=== PATIENT | female | born 1930 | race Caucasian/White ===

== ENCOUNTER 2016-07-12 13:40 | Emergency (ER) | payer MEDICARE ==
[2016-07-12 15:30] LABS: Hematocrit 42 % (35-47); Mean Corpuscular HGB Conc 33 g/dl (31-36); Mean Corpuscular Hemoglobin 29 pg (27-31); Mean Corpuscular Volume 86 fL (80-97); Mean Platelet Volume 10 um3 (7.4-10.4); Red Cell Distribution Width 14 % (10.5-15); White Blood Count 6.9 10^3/ul (3.5-10.8)
--- NOTE | 2016-07-12 15:45 | RAD ---
HISTORY: Palpitation COMPARISONS: May 08, 2010 VIEWS:1: Single frontal portable view of the chest at 3:15 PM FINDINGS: LINES AND TUBES: None. CARDIOMEDIASTINAL SILHOUETTE: The aorta is tortuous. The cardiomediastinal silhouette is otherwise normal for portable technique. PLEURA: The costophrenic angles are sharp. No pleural abnormalities are noted. LUNG PARENCHYMA: The lungs are clear. ABDOMEN: The upper abdomen is clear. There is no subphrenic gas. BONES AND SOFT TISSUES: No bone or soft tissue abnormalities are noted. IMPRESSION: NO ACTIVE CARDIOPULMONARY DISEASE.
[2016-07-12 15:50] LABS: Albumin 4.3 g/dL (3.2-5.2); BUN/Creatinine Ratio 16.3 (8-20); Calcium 10.2 mg/dL (8.6-10.3); EGFR African American 69.5 (>60); EGFR Non-African American 54.1 (>60); Globulin 3.2 g/dL (2-4); Magnesium 2.1 mg/dL (1.9-2.7); Total Bilirubin 0.7 mg/dL (0.2-1.0); Total Protein 7.5 g/dL (6.4-8.9)
[2016-07-12 16:39] LABS: TSH (Thyroid Stimulating Horm) 2.36 mcIU/mL (0.34-5.60)
[2016-07-12 17:41] VITALS: BP 143/72
--- NOTE | 2016-07-12 17:51 | ED ---
Ravindra Cobb Anna, scribed for Wilfrid Terrell MD on 07/12/16 at 1507 . Palpitations / Dysrhythmia - HPI Summary HPI Summary: Patient is an 86 y/o female coming to [facility] presenting with onset of intermittent heart palpitations that began two days ago. Her heart feels like it vibrates, and the sensation lasts one second. She feels somewhat diaphoretic , which she attributes to being scared. She denies pain, SOB, nausea, leg edema. Her history is significant for tachycardia. - History of Current Complaint Chief Complaint: EDDysrhythmPalp Time Seen by Provider: 07/12/16 15:00 Hx Obtained From: Patient - Allergy/Home Medications Allergies/Adverse Reactions: Allergies Allergy/AdvReac Type Severity Reaction Status Date / Time No Known Allergies Allergy Verified 07/12/16 14:59 Home Medications: Home Medications Ascorbic Acid TAB* [Vitamin C TAB*] 1,000 mg PO DAILY 07/12/16 [History Confirmed 07/12/16] Calcium W/ Magnesium [Farzad-Mag] 1 tab PO DAILY 07/12/16 [History Confirmed ] Coenzyme Q10 (Ubidecarenone) [Co Q-10] 200 mg PO BID 07/12/16 [History Confirmed 07/12/16] Garlic [Odorless Garlic] 300 mg PO DAILY 07/12/16 [History Confirmed 07/12/16] Pennie (Zingiber Officinalis) [Pennie Root] 250 mg PO DAILY 07/12/16 [History Confirmed 07/12/16] Pjbqwfdjcmf-Vzfciojtnoh-Iur C- [Glucosamine 1500 Complex] 1 cap PO DAILY [History Confirmed 07/12/16] Ibuprofen TAB* [Advil TAB*] 200 mg PO Q6H PRN 07/12/16 [History Confirmed ] LoraTADine TAB(NF) [Claritin 10 MG TAB(NF)] 10 mg PO DAILY 07/12/16 [History Confirmed 07/12/16] Christmas-3 Fatty Acids [Fish Oil 1200 mg] 2 cap PO DAILY 07/12/16 [History Confirmed 07/12/16] Verapamil HCl [Verapamil HCl ER] 180 mg PO DAILY 07/12/16 [History Confirmed ] PMH/Surg Hx/FS Hx/Imm Hx Cardiovascular History: Reports: Hx Hypertension, Other Cardiovascular Problems/ Disorders - Tachycardia Denies: Hx Myocardial Infarction - Surgical History Surgery Procedure, Year, and Place: NUMEROUS SURGERIES. TONSILLECTOMY, TUBAL LIGATION Infectious Disease History: No Infectious Disease History: Denies: Traveled Outside the [place] in Last 30 Days - Family History Known Family History: Negative: Cardiac Disease - Social History Occupation: Retired Alcohol Use: None Substance Use Type: Reports: None Smoking Status (MU): Former Smoker Review of Systems Positive: Skin Diaphoresis Positive: Palpitations Negative: Nausea Negative: Arthralgia, Edema Psychological: Normal All Other Systems Reviewed And Are Negative: Yes Physical Exam Triage Information Reviewed: Yes Vital Signs On Initial Exam: Initial Vitals Temp Pulse Resp BP Pulse Ox 98.4 F 92 16 163/75 100 07/12/16 13:45 07/12/16 13:45 07/12/16 13:45 07/12/16 13:45 07/12/16 13:45 Vital Signs Reviewed: Yes Appearance: Positive: Well-Appearing, No Pain Distress Skin: Positive: Warm, Skin Color Reflects Adequate Perfusion, Dry Head/Face: Positive: Normal Head/Face Inspection Eyes: Positive: Normal ENT: Positive: Normal ENT inspection Neck: Positive: Supple, Nontender Respiratory/Lung Sounds: Positive: Clear to Auscultation, Breath Sounds Present Cardiovascular: Positive: RRR Abdomen Description: Positive: Nontender, Soft Bowel Sounds: Positive: Present Musculoskeletal: Positive: Normal Neurological: Positive: Normal Psychiatric: Positive: Affect/Mood Appropriate - [place] Coma Scale Coma Scale Total: 15 Diagnostics - Vital Signs Vital Signs Temp Pulse Resp BP Pulse Ox 07/12/16 13:45 98.4 F 92 16 163/75 100 - Laboratory Lab Results: Lab Results 07/12/16 07/12/16 07/12/16 Range/Units 15:08 15:08 15:08 WBC 6.9 (3.5-10.8) 10^3/ul RBC 4.90 (4.0-5.4) 10^6/ul Hgb 14.0 (12.0-16.0) g/dl Hct 42 (35-47) % MCV 86 (80-97) fL MCH 29 (27-31) pg MCHC 33 (31-36) g/dl RDW 14 (10.5-15) % Plt Count 212 (150-450) 10^3/ul MPV 10 (7.4-10.4) um3 Neut % (Auto) 73.6 (38-83) % Lymph % (Auto) 18.4 L (25-47) % [place] % (Auto) 6.1 (1-9) % Eos % (Auto) 0.9 (0-6) % Baso % (Auto) 1.0 (0-2) % Absolute Neuts (auto) 5.1 (1.5-7.7) 10^3/ul Absolute Lymphs (auto) 1.3 (1.0-4.8) 10^3/ul Absolute Monos (auto) 0.4 (0-0.8) 10^3/ul Absolute Eos (auto) 0.1 (0-0.6) 10^3/ul Absolute Basos (auto) 0.1 (0-0.2) 10^3/ul Absolute Nucleated RBC 0.01 10^3/ul Nucleated RBC % 0.1 INR (Anticoag Therapy) 0.86 L (0.89-1.11) Sodium 137 (133-145) mmol/L Potassium 4.0 (3.5-5.0) mmol/L Chloride 102 (101-111) mmol/L Carbon Dioxide 26 (22-32) mmol/L Anion Gap 9 (2-11) mmol/L BUN 16 (6-24) mg/dL Creatinine 0.98 H (0.51-0.95) mg/dL Est GFR ( Amer) 69.5 (>60) Est GFR (Non-Af Amer) 54.1 (>60) BUN/Creatinine Ratio 16.3 (8-20) Glucose 106 H (70-100) mg/dL Lactic Acid (0.5-2.0) mmol/L Calcium 10.2 (8.6-10.3) mg/dL Magnesium 2.1 (1.9-2.7) mg/dL Total Bilirubin 0.70 (0.2-1.0) mg/dL AST 20 (13-39) U/L ALT 20 (7-52) U/L Alkaline Phosphatase 92 (34-104) U/L Troponin I 0.00 (<0.04) ng/mL Total Protein 7.5 (6.4-8.9) g/dL Albumin 4.3 (3.2-5.2) g/dL Globulin 3.2 (2-4) g/dL Albumin/Globulin Ratio 1.3 (1-3) TSH 2.36 (0.34-5.60) mcIU/mL 07/12/16 Range/Units 15:08 WBC (3.5-10.8) 10^3/ul RBC (4.0-5.4) 10^6/ul Hgb (12.0-16.0) g/dl Hct (35-47) % MCV (80-97) fL MCH (27-31) pg MCHC (31-36) g/dl RDW (10.5-15) % Plt Count (150-450) 10^3/ul MPV (7.4-10.4) um3 Neut % (Auto) (38-83) % Lymph % (Auto) (25-47) % [place] % (Auto) (1-9) % Eos % (Auto) (0-6) % Baso % (Auto) (0-2) % Absolute Neuts (auto) (1.5-7.7) 10^3/ul Absolute Lymphs (auto) (1.0-4.8) 10^3/ul Absolute Monos (auto) (0-0.8) 10^3/ul Absolute Eos (auto) (0-0.6) 10^3/ul Absolute Basos (auto) (0-0.2) 10^3/ul Absolute Nucleated RBC 10^3/ul Nucleated RBC % INR (Anticoag Therapy) (0.89-1.11) Sodium (133-145) mmol/L Potassium (3.5-5.0) mmol/L Chloride (101-111) mmol/L Carbon Dioxide (22-32) mmol/L Anion Gap (2-11) mmol/L BUN (6-24) mg/dL Creatinine (0.51-0.95) mg/dL Est GFR ( Amer) (>60) Est GFR (Non-Af Amer) (>60) BUN/Creatinine Ratio (8-20) Glucose (70-100) mg/dL Lactic Acid 1.5 (0.5-2.0) mmol/L Calcium (8.6-10.3) mg/dL Magnesium (1.9-2.7) mg/dL Total Bilirubin (0.2-1.0) mg/dL AST (13-39) U/L ALT (7-52) U/L Alkaline Phosphatase (34-104) U/L Troponin I (<0.04) ng/mL Total Protein (6.4-8.9) g/dL Albumin (3.2-5.2) g/dL Globulin (2-4) g/dL Albumin/Globulin Ratio (1-3) TSH (0.34-5.60) mcIU/mL Result Diagrams: 07/12/16 15:08 07/12/16 15:08 Lab Statement: Any lab studies that have been ordered have been reviewed, and results considered in the medical decision making process. - Radiology CXR Xray Interpretation: No Acute Changes Radiology Interpretation Completed By: Radiologist - EKG 1353 Cardiac Rate: NL - 81 bpm EKG Rhythm: Sinus Rhythm ST Segment: Normal Ectopy: None EKG Interpretation: Long QTc Re-Evaluation - Re-Evaluation First Eval Re-Evaluation Time: 17:01 Comment: Discussed results and plan of care with patient. Patient agrees with plan. Course/Dx - Course Course Of Treatment: Ms. Morales's W/U was negative and we observed her on the monitor with catching any dysrythmias. I reassured her and recommended F/U. - Diagnoses Provider Diagnoses: Palpitations Discharge - Discharge Plan Condition: Stable Disposition: HOME Patient Education Materials: Palpitations (ED) Referrals: Atiya Velasquez MD [Primary Care Provider] - Additional Instructions: Follow up with primary care provider within 48 hours. Return to the emergency department for any new or worsening symptoms. The documentation as recorded by the Ravindra chicas Anna accurately reflects the service I personally performed and the decisions made by me, Wilfrid Terrell MD.
== END 2016-07-12 17:41 | disposition home or self-care (01) ==
LOC: ED 13:40
DX: R00.2 Palpitations (principal); R61 Generalized hyperhidrosis; Z87.891 Personal history of nicotine dependence
CPT/HCPCS: 36415; 71010; 80053; 83605; 83735; 84443; 84484; 85025; 85610; 93005; 99284

== ENCOUNTER 2016-10-10 15:56 | Emergency (ER) | payer MEDICARE ==
[2016-10-10 16:01] VITALS: BP 148/65
[2016-10-10] MEDS ORDERED: Cephalexin CAP* 500 MG PO ONE ×3 (16:26)
--- NOTE | 2016-10-10 16:37 | UC ---
Skin Complaint HPI - HPI Summary HPI Summary: Patient presents with possible bug bite to the antecubital fossa x 2 days. She was gardening and states she must have been stung by something although she did not visualize and insect or a tick. She then developed redness around the area measuring 8X7cm with well demarcated areas. Slightly warm to the touch. Denies fevers, sweats, chills or aches. Able to have active ROM without compromise or pain. Denies numbness or tingling. Positive for osteoarthritis but otherwise healthy. - History of Current Complaint Chief Complaint: UCSkin Time Seen by Provider: 10/10/16 16:06 Stated Complaint: BUG BITE Hx Obtained From: Patient ?: No Onset/Duration: Sudden Onset Skin Exposure Onset/Duration: Days Ago Timing: Constant Onset Severity: Mild Current Severity: Mild Pain Intensity: 0 Pain Scale Used: 0-10 Numeric Location: Discrete - antecubital fossa Character: Redness Aggravating: Nothing Alleviating: Nothing Related History: Possible Reaction to: Insect - Allergy/Home Medications Allergies/Adverse Reactions: Allergies Allergy/AdvReac Type Severity Reaction Status Date / Time No Known Allergies Allergy Verified 07/12/16 14:59 Review of Systems Constitutional: Negative Skin: Other - antecubital fossa erythema - well demarcated borders measuring 8X7 ENT: Negative Respiratory: Negative Cardiovascular: Negative Neurovascular: Negative Musculoskeletal: Negative Neurological: Negative All Other Systems Reviewed And Are Negative: Yes PMH/Surg Hx/FS Hx/Imm Hx - Additional Past Medical History Additional PMH: allergies, osteoarthritis Previously Healthy: Yes Other Respiratory History: allergies - Surgical History Surgical History: Yes Surgery Procedure, Year, and Place: NUMEROUS SURGERIES. TONSILLECTOMY, TUBAL LIGATION - Family History Known Family History: Negative: Cardiac Disease - Social History Occupation: Unemployed, Retired Lives: With Family Alcohol Use: None Substance Use Type: None Smoking Status (MU): Former Smoker Physical Exam Triage Information Reviewed: Yes Appearance: Well-Appearing, Well-Nourished Vital Signs: Initial Vital Signs Temp 98.1 F 10/10/16 15:58 Pulse 89 10/10/16 15:58 Resp 20 10/10/16 15:58 BP 148/65 10/10/16 15:58 Pulse Ox 100 10/10/16 15:58 Vital Signs Reviewed: Yes Eye Exam: Normal Eyes: Positive: Conjunctiva Clear Neck exam: Normal Neck: Positive: No Lymphadenopathy Respiratory Exam: Normal Respiratory: Positive: Chest non-tender, Lungs clear Cardiovascular Exam: Normal Cardiovascular: Positive: RRR Musculoskeletal Exam: Normal Musculoskeletal: Positive: Strength Intact Neurological Exam: Normal Neurological: Positive: Alert Psychological: Positive: Normal Response To Family, Age Appropriate Behavior Skin Exam: Normal Course/Dx - Course Course Of Treatment: antecubital fossa erythema - well demarcated borders measuring 8X7 began 2 days ago. possible insect bite but did not visualize area. Keflex given in UC. One dose to dispense to home. Rx sent for 7 days x 4 times daily Keflex. Return precautions given. Patient made aware of results and plan and is OK with discharge. Medications reviewed with patient. - Differential Diagnoses - Skin Complaint Differential Diagnoses: Abscess, Cellulitis, Other - erisepelas - Diagnoses Provider Diagnoses: cellulitis Discharge - Discharge Plan Condition: Stable Disposition: HOME Prescriptions: Cephalexin CAP* [Keflex CAP*] 500 mg PO QID #28 cap MDD 4 Patient Education Materials: Cellulitis (ED) Referrals: Atiya Velasquez MD [Primary Care Provider] - Additional Instructions: If you develop any worsening pain, redness, warmth or you develop a fever, return to UC immediately. Keflex four times daily for 7 days.
[2016-10-10] MEDS ORDERED: Tetan/Diph/Pertus SYR(Tdap)* 0.5 ML SYR(BOOSTRIX) use SYR IM ONE (16:38)
== END 2016-10-10 16:49 | disposition home or self-care (01) ==
LOC: UCEAST 15:56
DX: L03.119 Cellulitis of unspecified part of limb (principal)
CPT/HCPCS: 90471; 90715; 96372; 99212; A9270-GY; G0463

== ENCOUNTER 2017-07-13 11:14 | Emergency (ER) | payer MEDICARE ==
[2017-07-13 11:29] VITALS: BP 143/75
[2017-07-13] MEDS ORDERED: Albuterol 2.5 MG/3 ML NEB.SOL* (0.083%) INH ONE (12:06)
--- NOTE | 2017-07-13 12:27 | UC ---
Nunu Cobb Nilda, scribed for Melissa Olsen MD on 07/13/17 at 1207 . Respiratory Complaint HPI - HPI Summary HPI Summary: This patient is an 87 year old F presenting to [facility] with a chief complaint of constant productive cough (thick, phlegmy) for the past week. The patient rates the pain 0/10 in severity. Symptoms aggravated by lying down at night and alleviated by nothing. Patient reports wheezing, vomiting secondary to cough, insomnia, and chronic constipation. Patient denies fever, chills, loss of appetite, diarrhea, and abnormal urinary symptoms. Pt states recent sick contacts, noting everyones sick. Pt states shes had PNA shots. Pt has not seen here PCP. No h/o lung dx. No cp Medications include Verapamil. Patients medication reviewed this visit. - History of Current Complaint Chief Complaint: UCGeneralIllness Stated Complaint: COUGH CONGESTION Time Seen by Provider: 07/13/17 11:47 Hx Obtained From: Patient Hx Last Menstrual Period: post menopausal Onset/Duration: Sudden Onset, Lasting Weeks, Still Present Timing: Constant Pain Intensity: 0 Pain Scale Used: 0-10 Numeric Character: Cough: Productive Aggravating Factors: Recumbent Position Alleviating Factors: Nothing Associated Signs And Symptoms: Positive: Wheezing. Negative: Fever, Chills - Allergies/Home Medications Allergies/Adverse Reactions: Allergies Allergy/AdvReac Type Severity Reaction Status Date / Time No Known Allergies Allergy Verified 07/12/16 14:59 PMH/Surg Hx/FS Hx/Imm Hx Previously Healthy: Yes Cardiovascular History: Other Other Cardiovascular History: Tachycardia - Surgical History Surgical History: Yes Surgery Procedure, Year, and Place: NUMEROUS SURGERIES. TONSILLECTOMY, TUBAL LIGATION - Family History Known Family History: Negative: Cardiac Disease - Social History Occupation: Retired Lives: Alone Alcohol Use: None Substance Use Type: None Smoking Status (MU): Former Smoker Review of Systems Constitutional: Negative Respiratory: Cough - productive, green phelm, Other - wheezing Gastrointestinal: Vomiting - secondary to cough, Other - chronic constipation; negative loss of appetite, diarrhea Genitourinary: Other - negative abnormal urinary symptoms Neurological: Other - insomnia All Other Systems Reviewed And Are Negative: Yes Physical Exam Triage Information Reviewed: Yes Appearance: Well-Appearing, No Pain Distress, Well-Nourished Vital Signs: Initial Vital Signs Temp 97.7 F 07/13/17 11:22 Pulse 85 07/13/17 11:22 Resp 16 07/13/17 11:22 BP 143/75 07/13/17 11:22 Pulse Ox 97 07/13/17 11:22 Vital Signs Reviewed: Yes Eye Exam: Normal Eyes: Positive: Conjunctiva Clear ENT Exam: Normal ENT: Positive: Normal ENT inspection, Pharynx normal, TMs normal. Negative: Nasal congestion, Nasal drainage Dental Exam: Normal Neck exam: Normal Neck: Positive: Supple, Nontender, No Lymphadenopathy Respiratory Exam: Normal Respiratory: Positive: Chest non-tender, No respiratory distress, No accessory muscle use, Other: - scattered wheeze no increased WOB speaking full, easy sentences Cardiovascular Exam: Normal Cardiovascular: Positive: RRR, No Murmur Abdominal Exam: Normal Abdomen Description: Positive: Nontender, No Organomegaly, Soft Bowel Sounds: Positive: Present Musculoskeletal Exam: Normal Musculoskeletal: Positive: Strength Intact Neurological Exam: Normal Neurological: Positive: Alert Psychological Exam: Normal Psychological: Positive: Normal Response To Family Skin Exam: Normal UC Diagnostic Evaluation - Laboratory O2 Sat by Pulse Oximetry: 97 - Radiology Radiology Interpretation Completed By: Radiologist - CXR reveals no active cardiopulmonary disease. Dr. Olsen has reviewed this radiology report. Re-Evaluation - Re-Evaluation First Eval Re-Evaluation Time: 12:47 Comment: Reviewed CXR results with pt. Wheezing had improved. Will D/C with cough meds, abx. reviewed with pt return precautions, humidify air, hydrate. secretion precaution. and f/u with PCP next week. Respiratory Course/Dx - Course Course Of Treatment: Blood pressure noted and patient informed to follow up with PCP. Pt with cough x 7 days, worse at night. Pt with post tussive emesis. scattered wheeze on exam, stable VS. will give neb, CXR and reassess - Differential Dx/Diagnosis Provider Diagnoses: bronchitis Discharge - Sign-Out/Discharge Documenting (check all that apply): Discharge - Discharge Plan Condition: Stable Disposition: HOME Prescriptions: Azithromycin TAB* [Zithromax TAB (Z-ROSAURA) 250 mg #6 tabs] 2 tab PO .TODAY, THEN 1 DAILY #1 rosaura Benzonatate CAP* [Tessalon 100 MG CAP*] 100 mg PO TID #15 cap Patient Education Materials: Acute Bronchitis (ED) Referrals: Atiya Velasquez MD [Primary Care Provider] - Additional Instructions: - Stay well hydrated. Drink plenty of non-alcoholic, non-caffinated beverages - humidify the air in the room where you sleep - take antibiotics as prescribed until gone - Okay to take cough medication as prescribed - These infections are spread by secretions - do NOT share eating or drinking utensils - clean items you share with other people such as cell phones, computer mouse, TV remote, computer tablets, etc. once you start to feel better , change your toothbrush and your pillowcase. - contact your doctor to schedule a follow-up appointment next week. - Billing Disposition and Condition Condition: STABLE Disposition: HOME The documentation as recorded by the Nunu chicas Nilda accurately reflects the service I personally performed and the decisions made by me, Melissa Olsen MD.
--- NOTE | 2017-07-13 12:35 | RAD ---
HISTORY: Productive cough, rhonchi of left base COMPARISONS: July 12, 2016 VIEWS: 4: Frontal dual-energy and lateral views of the chest. FINDINGS: CARDIOMEDIASTINAL SILHOUETTE: The cardiomediastinal silhouette is normal. YOLANDA: The yolanda are normal. PLEURA: The costophrenic angles are sharp. 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 LUNG PARENCHYMA: The lungs are clear. ABDOMEN: The upper abdomen is clear. There is no subphrenic gas. BONES AND SOFT TISSUES: No bone or soft tissue abnormalities are noted. OTHER: None. IMPRESSION: NO ACTIVE CARDIOPULMONARY DISEASE.
== END 2017-07-13 12:56 | disposition home or self-care (01) ==
LOC: UCEAST 11:14
DX: J40 Bronchitis, not specified as acute or chronic (principal); R00.0 Tachycardia, unspecified; Z87.891 Personal history of nicotine dependence
CPT/HCPCS: 71046; 99212; G0463

== ENCOUNTER 2019-06-20 12:38 | Emergency (ER) | payer MEDICARE ==
[2019-06-20 12:43] VITALS: BP 150/86
[2019-06-20] MEDS ORDERED: Mineral Oil ENEMA* 1 BOTTLE PR ONE (14:47)
[2019-06-20] MEDS ORDERED: Polyethylene Glycol 3350* 17 GM PACKET PO PRN (14:47)
--- NOTE | 2019-06-20 14:47 | ED ---
GI/ HPI - HPI Summary HPI Summary: 89 year old F with hx chronic constipation arriving via private car to [facility] complains of constipation and intermittent dizziness x1 week. Last normal bowel movement 2 days ago. She states she had to digitally remove stool during this bowel movement. Patient denies any fever, chills, erythema of eyes, sore throat , chest pain, shortness of breath, cough, abdominal pain, nausea/vomiting, dysuria, hematuria, myalgia, edema, rash. Symptoms aggravated by nothing. Symptoms alleviated by nothing. She usually takes laxatives which help her constipation. They have not helped this time. She tried using enema which did not help. Patient hasn't eaten much food lately. She hasn't had any vegetables or fruits. Two days ago she consumed a lot of cheese out at lunch with her friends. She states she normally eats 0.5 pound of cheese in 1 week. Yesterday she ate oyster crackers, cheese, coffee, tea. Today she had coffee and sugar. Home Medications Medication Instructions Recorded Confirmed Type Aspirin 81 mg CHEW TAB* 81 mg PO DAILY 04/30/12 10/10/16 History Calcium W/ Magnesium [Farzad-Mag] 1 tab PO DAILY 07/12/16 10/10/16 History Garlic [Odorless Garlic] 300 mg PO DAILY 07/12/16 10/10/16 History Pennie (Zingiber Officinalis) 250 mg PO DAILY 07/12/16 10/10/16 History [Pennie Root] Glucosamine/Chondroitin/C/Bob 1 cap PO DAILY 07/12/16 10/10/16 History [Glucosamine 1500 Complex] Ibuprofen TAB* [Advil TAB*] 200 mg PO Q6H PRN 07/12/16 10/10/16 History LoraTADine TAB(NF) [Claritin 10 MG 10 mg PO DAILY 07/12/16 10/10/16 History TAB(NF)] Porcupine-3 Fatty Acids/Fish Oil [Fish 2 cap PO DAILY 07/12/16 10/10/16 History Oil 1200 mg] Ubidecarenone [Co Q-10] 200 mg PO BID 07/12/16 10/10/16 History Verapamil HCl [Verapamil HCl ER] 180 mg PO DAILY 07/12/16 10/10/16 History Azithromycin TAB* [Zithromax TAB 2 tab PO .TODAY, THEN 1 DAILY #1 07/13/17 Rx (Z-ROSAURA) 250 mg #6 tabs] rosaura Benzonatate CAP* [Tessalon 100 MG 100 mg PO TID #15 cap 07/13/17 Rx CAP*] Docusate CAP* [Colace Cap*] 100 mg PO BID #14 cap 06/20/19 Rx - History of Current Complaint Chief Complaint: EDConstipation Time Seen by Provider: 06/20/19 14:37 Stated Complaint: THINKS BOWEL IMPACTION PER PT Hx Obtained From: Patient Hx Last Menstrual Period: post menopausal Onset/Duration: Started Weeks Ago - 1, Still Present Timing: Constant Current Severity: None Pain Intensity: 0 Associated Signs and Symptoms: Positive: Negative - fever, chills, erythema of eyes, sore throat, chest pain, shortness of breath, cough, abdominal pain, nausea/vomiting, dysuria, hematuria, myalgia, edema, rash, Dizziness Aggravating Factor(s): Nothing Alleviating Factor(s): Nothing - Allergy/Home Medications Allergies/Adverse Reactions: Allergies Allergy/AdvReac Type Severity Reaction Status Date / Time No Known Allergies Allergy Verified 07/12/16 14:59 Home Medications: Home Medications Aspirin 81 mg CHEW TAB* 81 mg PO DAILY 04/30/12 [History Confirmed 10/10/16] Calcium W/ Magnesium [Farzad-Mag] 1 tab PO DAILY 07/12/16 [History Confirmed ] Garlic [Odorless Garlic] 300 mg PO DAILY 07/12/16 [History Confirmed 10/10/16] Pennie (Zingiber Officinalis) [Pennie Root] 250 mg PO DAILY 07/12/16 [History Confirmed 10/10/16] Glucosamine/Chondroitin/C/Bob [Glucosamine 1500 Complex] 1 cap PO DAILY [History Confirmed 10/10/16] Ibuprofen TAB* [Advil TAB*] 200 mg PO Q6H PRN 07/12/16 [History Confirmed ] LoraTADine TAB(NF) [Claritin 10 MG TAB(NF)] 10 mg PO DAILY 07/12/16 [History Confirmed 10/10/16] Porcupine-3 Fatty Acids/Fish Oil [Fish Oil 1200 mg] 2 cap PO DAILY 07/12/16 [ History Confirmed 10/10/16] Ubidecarenone [Co Q-10] 200 mg PO BID 07/12/16 [History Confirmed 10/10/16] Verapamil HCl [Verapamil HCl ER] 180 mg PO DAILY 07/12/16 [History Confirmed ] Azithromycin TAB* [Zithromax TAB (Z-ROSAURA) 250 mg #6 tabs] 2 tab PO .TODAY, THEN 1 DAILY #1 rosaura 07/13/17 [Rx] Benzonatate CAP* [Tessalon 100 MG CAP*] 100 mg PO TID #15 cap 07/13/17 [Rx] Docusate CAP* [Colace Cap*] 100 mg PO BID #14 cap 06/20/19 [Rx] PMH/Surg Hx/FS Hx/Imm Hx Endocrine/Hematology History: Denies: Hx Diabetes, Hx Thyroid Disease Cardiovascular History: Reports: Hx Hypertension, Other Cardiovascular Problems/ Disorders - MEDS FOR TACHYCARDIA Denies: Hx Myocardial Infarction Respiratory History: Denies: Hx Asthma, Hx Chronic Obstructive Pulmonary Disease (COPD) - Surgical History Surgery Procedure, Year, and Place: NUMEROUS SURGERIES. TONSILLECTOMY, TUBAL LIGATION Infectious Disease History: No Infectious Disease History: Denies: Traveled Outside the [place] in Last 30 Days - Family History Known Family History: Negative: Cardiac Disease - Social History Alcohol Use: None Substance Use Type: Reports: None Hx Tobacco Use: Yes Smoking Status (MU): Former Smoker Review of Systems Negative: Fever, Chills Negative: Erythema Negative: Sore Throat Negative: Chest Pain Negative: Shortness Of Breath, Cough Positive: Other - constipation. Negative: Abdominal Pain, Vomiting, Nausea Negative: dysuria, hematuria Negative: Myalgia, Edema Negative: Rash Neurological/Mental Status: Other - Dizziness All Other Systems Reviewed And Are Negative: Yes Physical Exam - Summary Physical Exam Summary: Constitutional: Well-developed, Well-nourished, Alert. (-) Distressed Skin: Warm, Dry HENT: Normocephalic; Atraumatic Eyes: Conjunctiva normal Neck: Musculoskeletal ROM normal neck. (-) JVD, (-) Stridor, (-) Tracheal deviation Cardio: Rhythm regular, rate normal, Heart sounds normal; Intact distal pulses; The pedal pulses are 2+ and symmetric. Radial pulses are 2+ and symmetric. (-) Murmur Pulmonary/Chest wall: Effort normal. (-) Respiratory distress, (-) Wheezes, (-) Rales Abd: Soft, (-) tenderness, (-) Distension, (-) Guarding, (-) Rebound Musculoskeletal: (-) Edema Lymph: (-) Cervical adenopathy Neuro: Alert, Oriented x3 Psych: Mood and affect Normal Triage Information Reviewed: Yes Vital Signs On Initial Exam: Initial Vitals Temp Pulse Resp BP Pulse Ox 98.2 F 90 16 150/86 96 06/20/19 12:40 06/20/19 12:40 06/20/19 12:40 06/20/19 12:40 06/20/19 12:40 Vital Signs Reviewed: Yes Procedures - Sedation Patient Received Moderate/Deep Sedation with Procedure: No Diagnostics - Vital Signs Vital Signs Temp Pulse Resp BP Pulse Ox 06/20/19 12:40 98.2 F 90 16 150/86 96 - Laboratory Lab Statement: Any lab studies that have been ordered have been reviewed, and results considered in the medical decision making process. Re-Evaluation - Re-Evaluation First Eval Re-Evaluation Time: 16:45 Comment: nurse reports patient has not had bowel movement yet Second Eval Re-Evaluation Time: 16:49 Comment: rectal exam chaperoned by female RN, Valeria Menezes, present reveals empty vault and no fecal impaction GIGU Course/Dx - Course Course Of Treatment: 89 y/o F with hx chronic constipation presents with constipation and intermittent dizziness x1 week. Last normal bowel movement 2 days ago during which she had to digitally remove stool. She has tried taking laxatives and using enema which have not helped. Patient states her diet consists mainly of cheese. She doesn't eat many vegetables or fruits. Physical exam unremarkable. In the ED course, the patient was given Miralax and an enema. She did not have a bowel movement after these. Rectal exam chaperoned by female RN, Valeria Menezes, present reveals empty vault and no fecal impaction. Patient reports poor oral intake. She was advised to have 5 servings of vegetables and fruits daily and increasing water intake. Patient will be discharged home with prescription for stool softener and follow up from her primary care provider. Patient was instructed to return to Emergency Department for new or worsening symptoms. Patient understands and is agreeable to this plan. - Diagnoses Provider Diagnoses: Constipation Discharge ED - Sign-Out/Discharge Documenting (check all that apply): Patient Departure - Discharge Plan Condition: Stable Disposition: HOME Prescriptions: Docusate CAP* [Colace Cap*] 100 mg PO BID #14 cap Patient Education Materials: Constipation (ED), High Fiber Diet (ED) Referrals: Atiya Velasquez MD [Primary Care Provider] - 3 Days Additional Instructions: Eat more fruits and vegetables. Drink more water. Please follow up with your primary care provider in 3 days. Return to the Emergency Department for changing or worsening symptoms. - Attestation Statements Document Initiated by Scribe: Yes Documenting Scribe: Nicole Kim Provider For Whom Scribe is Documenting (Include Credential): Ludwin Delgado MD Scribe Attestation: Nicole Cobb, scribed for Ludwin Delgado MD on 06/20/19 at 1836.
== END 2019-06-20 17:10 | disposition home or self-care (01) ==
LOC: ED 12:38
DX: K59.00 Constipation, unspecified (principal); R42 Dizziness and giddiness; I10 Essential (primary) hypertension; Z79.82 Long term (current) use of aspirin; Z79.899 Other long term (current) drug therapy; Z87.891 Personal history of nicotine dependence
CPT/HCPCS: 99282; A9270-GY